=== PATIENT | male | born 1975 | race Caucasian/White ===

== ENCOUNTER 2020-12-20 18:52 | Outpatient (CLI) | payer MEDICAID, SELFPAY ==
--- NOTE | 2020-12-20 11:15 | DI.RAD_ITS ---
Exam(s) XR LUMBAR SPINE COMPLETE EXAM: XR LUMBAR SPINE COMPLETE CLINICAL HISTORY: lumbar pain,M54.50. TECHNIQUE: 2D digital imaging was performed. COMPARISON: CR LUMBAR SPINE COMPLETE from 02/12/2008 FINDINGS: Five views of the lumbar spine reveal no evidence of fracture or listhesis. No pars defects. There is moderate disc space narrowing at L5-S1 level and mild disc space narrowing at L4-5 level. Other d isc spaces above this level exhibit normal height. There is no scoliosis. Some sclerosis is seen ar ound the inferior aspect of the left sacroiliac joint but no ankylosis. No obvious facet arthropathy. IMPRESSION: The disc space narrowing as described above. No listhesis. Sclerosis around the inferior aspect of the left sacroiliac joint may indicate an element of sacroili itis. DATA REPOSITORY: RADIATION DOSE DELIVERED:
== END 2020-12-20 19:12 ==
PROVIDERS: Visit Provider Nurse Practitioner Family
DX: M54.50 Low back pain, unspecified (principal); M51.37 Other intervertebral disc degeneration, lumbosacral region; M53.3 Sacrococcygeal disorders, not elsewhere classified
CPT/HCPCS: 72110

== ENCOUNTER 2023-02-07 03:29 | Outpatient (CLI) | payer MEDICAID, SELFPAY ==
[2023-02-07 12:34] LABS: ALT 20 U/L (16-63); AST 16 U/L (15-37); Albumin 3.8 g/dL (3.4-5.0); Alkaline Phosphatase 45 U/L (46-116); Anion Gap 7.4 mmol/L (3-11); BUN 15 mg/dL (7-18); Bilirubin, Total 0.7 mg/dL (0.2-1.0); CO2 29.6 mmol/L (21.0-32.0); CREATININE 1.2 mg/dL (0.70-1.30); Calcium 9.1 mg/dL (8.5-10.1); Calculated LDL 123 mg/dL (<100); Chloride 103 mmol/L (98-107); Cholesterol 189 mg/dL (<200); Estimated GFR 73.67 (mL/min/1.73m2); Glucose 99 mg/dL (74-106); HDL Cholesterol 52 mg/dL (40-60); Potassium 3.9 mmol/L (3.5-5.1); Sodium 140 mmol/L (136-145); Total Protein 7.5 g/dL (6.4-8.2); Triglyceride 73 mg/dL (<150)
[2023-02-07 21:52] LABS: Hepatitis C Ab w Rflx HCV PCR Negative (Negative)
[2023-02-07 21:56] LABS: HIV-1/2 Ag & Ab Screen Negative (Negative)
== END 2023-02-07 03:30 | disposition home or self-care (01) ==
LOC: LOS 03:29
PROVIDERS: PCP Nurse Practitioner Family; Visit Provider Nurse Practitioner Family
DX: Z13.220 Encounter for screening for lipoid disorders (principal); Z11.4 Encounter for screening for human immunodeficiency virus [HIV]; Z11.59 Encounter for screening for other viral diseases; Z13.228 Encounter for screening for other metabolic disorders
CPT/HCPCS: 36415; 80053; 80061; 86803; 87389